=== PATIENT | female | born 1980 | race Two or more races ===

== ENCOUNTER 2025-05-28 11:43 | Emergency (ER) | payer OTHER ==
[~2025-05-28] VITALS: Ht 170.2 cm; Wt 106.6 kg
[~2025-05-28 11:43] MED LIST: METOCLOPRAMIDE; ZANTAC300 MG
[2025-05-28] MEDS ORDERED: ORPHENADRINE CITRATE 30 MG/ML AMPUL IM ONE (13:00)
[2025-05-28] MEDS ORDERED: KETOROLAC TROMETHAMINE 30 MG VIAL IM ONE (13:00)
[2025-05-28] MEDS ORDERED: ORPHENADRINE CITRATE 30 MG/ML AMPUL ONE ×2 (13:05→14:24)
[2025-05-28] MEDS ORDERED: KETOROLAC TROMETHAMINE 30 MG VIAL ONE ×2 (13:05→14:23)
[2025-05-28 15:20] LABS: BUN CREA RATIO 23.0 (7.0-25.0); CREATININE SERUM 0.66 mg/dL (0.55-1.02); GFR 97.29; GLUCOSE FASTING 90.0 mg/dL (65-100); OSMOLALITY SERUM 283.0 MOSM/KG (275-295)
[2025-05-28 15:31] LABS: BASO % 1.2 % (0.1-1.2); EOS # 0.08 (0.04-0.54); EOS % 2.5 % (0.7-7.0); LYMPH # 0.96 (1.18-3.74); LYMPH % 29.9 % (19.3-53.1); MEAN PLATELET VOLUME 10.90 fl (9.4-12.4); MONO # 0.23 (0.24-0.82); MONO % 7.2 % (4.7-12.5); NEUT # 1.90 (1.56-6.13); NEUT % 59.2 % (34.0-71.1); RED CELL DISTRIBUTION WIDTH 12.4 % (11.6-14.4)
[2025-05-28] MEDS ORDERED: CYCLOBENZAPRINE10 MG PO (18:50)
== END 2025-05-28 21:37 | disposition home or self-care (01) ==
LOC: ER 11:44
PROVIDERS: General Practice
DX: M54.2 Cervicalgia (principal); M62.838 Other muscle spasm; R07.89 Other chest pain; Z88.2 Allergy status to sulfonamides